=== PATIENT | female | born 1965 | race Caucasian/White ===

== ENCOUNTER 2017-02-21 11:54 | Emergency (ER) | payer BC ==
[2017-02-21 12:10] VITALS: BP 150/67
--- NOTE | 2017-02-21 13:00 | EDM.PDOC ---
ED HPI HEADACHE COMPLAINT - General Chief Complaint: Headache Stated Complaint: HEADACHE/BLOOD VESSEL IN LT EYE Time Seen by Provider: 02/21/17 12:43 Source: Reports: Patient, Old records, RN notes reviewed History Limitations: Reports: No limitations - History of Present Illness INITIAL COMMENTS - FREE TEXT/NARRATIVE: 51-year-old female presents to emergency department today complaining of headache she was initially evaluated in the urgent care clinic and referred to the ED for further evaluation. She states she was awoken from sleep with the worst headache of her life 2 days prior headache lasted approximately 5 minutes then resolved. Today she awoke with with a low-grade headache predominantly behind her left eye she denies any other symptoms such as photophobia phonophobia or nausea no history of migraines does have a history of small vessel ischemic disease in her father, blood work done yesterday including CBC, INR within normal limits factor 5 is pending - Related Data Allergies/ADRs: Allergies Allergy/AdvReac Type Severity Reaction Status Date / Time azithromycin Allergy Hives Verified 07/25/13 13:02 [From Zithromax Z-Ayaan] ramelteon [From Rozerem] Allergy Anxiety Verified 08/30/14 14:22 Home Meds: Home Meds Aspirin 81 mg PO 07/25/13 [History] Calcium Carb/Vit D3/Minerals [Calcium 600+D Plus Min] 1 each PO 07/25/13 [ History] Cetirizine HCl/Pseudoephedrine [Zyrtec-D Tablet] 1 each PO 07/25/13 [History] Magnesium Oxide [Mag-Oxide] 400 mg PO 07/25/13 [History] Melatonin 1 mg PO BEDTIME 07/25/13 [History] Progesterone,Micronized [Prometrium] 200 mg PO BEDTIME 07/25/13 [History] Vit C/Ascorbate Ca/Ascorb Sod [Vitamin C] 500 mg PO 07/25/13 [History] Vit D3 & K/Berberine HCl/Hops [Ostera] 1 each PO 07/25/13 [History] Estrogen,Thelma/Me-Testosterone [Estrogen-Methyltestos F.S.] 1 each PO 02/21/17 [ History] Past Medical History HEENT History: Reports: Other (see below) Other HEENT History: headache past 2 days,broken blood vessel in L eye Neurological History: Reports: Other (see below) Other Neuro History: headache past 2 days C/0 pressure Social & Family History - Tobacco Use Smoking Status *Q: Never Smoker - Caffeine Use Caffeine Use: Reports: None - Alcohol Use Number of Drinks Per Day: 1 - Recreational Drug Use Recreational Drug Use: No ED ROS GENERAL - Review of Systems Review Of Systems: See Below Constitutional: Denies: fever, chills HEENT: Reports: No symptoms Respiratory: Reports: No Symptoms Cardiovascular: Reports: No symptoms GI/Abdominal: Reports: No symptoms : Reports: no symptoms Musculoskeletal: Reports: no symptoms Skin: Reports: no symptoms Neurological: Reports: Headache Psychiatric: Reports: No symptoms - Physical Exam Exam: See Below Text/Narrative:: General: female, not in any distress, alert and oriented x3 HEENT: head is atraumatic normocephalic, eyes pupils equal round reactive to light, sclera has a sub-conjunctival hemorrhage medial aspect left eye right eye is clear, no conjunctivitis appreciated, funduscopic exam revealed sharp disc margins no papilledema noted did complain of pain in the funduscopic exam with the right eye only. Ears tympanic membranes clear and landrum landmarks and light reflex are present bilaterally canals are clear. Nose no septal deviation, nares are clear, no blood present. Mouth mucosa is moist and pink no erythema or exudate noted in soft palate, tongue is midline uvula is midline, dentition is intact. Neck: Supple no thyromegaly no tracheal deviation. Nodes: Cervical nodes subclavicular nodes nontender no palpable lymphadenopathy noted. Lungs: clear to auscultation bilaterally with symmetrical respirations, no adventitious noise appreciated. CV: Regular rate and rhythm S1 and S2 appreciated no murmurs rubs or gallops noted. Abdomen: Soft, nontender, no palpable masses or organomegaly appreciated, no distention no guarding bowel sounds are present, Neuro: Cranial nerves II through XII grossly intact Skin: Warm and dry, intact Extremities: No lower extremity edema appreciated, Course - Vital Signs Last Recorded V/S: Last Vital Signs Temp 97.7 F 02/21/17 12:07 Pulse 70 02/21/17 12:07 Resp 18 02/21/17 12:07 BP 150/67 H 02/21/17 12:07 Pulse Ox - Orders/Labs/Meds Orders: Active Orders 24 hr Category Date Time Status Head wo Cont [CT] Stat Exams 02/21/17 12:57 Taken Departure - Departure Time of Disposition: 14:29 Disposition: Home, Self-Care 01 Condition: good Clinical Impression: Head ache Qualifiers: Headache type: unspecified Headache chronicity pattern: acute headache Intractability: not intractable Qualified Code(s): R51 - Headache Forms: ED Department Discharge Additional Instructions: use Tylenol or Motrin as needed for pain control, Please followup with your primary care provider in 3-5 days if not better, please call return to the emergency department with worsening of symptoms. - My Orders Last 24 Hours: My Active Orders 02/21/17 12:57 Head wo Cont [CT] Stat - Assessment/Plan Last 24 Hours: My Active Orders 02/21/17 12:57 Head wo Cont [CT] Stat Plan: Assessment Acuity = acute Site and laterality = headache Etiology = unclear etiology Manifestations = none Location of injury = home Lab values = CT scan shows no acute process Plan I did review CT scan results,declined any treatment for pain control issues ibuprofen at home follow up her primary care 3-5 days if no improvement Patient was in agreement with the plan all questions were answered, they were instructed to return to the emergency department or call for worsening symptoms. This note was dictated using [employer] voice recognition software please call with any questions.
== END 2017-02-21 14:38 | disposition home or self-care (01) ==
LOC: JP.ED 11:54
DX: R51 Headache (principal); Z79.82 Long term (current) use of aspirin; Z79.899 Other long term (current) drug therapy; Z88.1 Allergy status to other antibiotic agents; Z88.8 Allergy status to other drugs, medicaments and biological substances
CPT/HCPCS: 70450; 99284-25

== ENCOUNTER 2019-04-23 23:27 | Emergency (ER) | payer BC ==
[2019-04-23 23:54] VITALS: BP 126/54
[2019-04-23] MEDS ORDERED: Tetracaine HCl/PF 0.5% 4 ML Bottle EYERT ONE (23:57)
--- NOTE | 2019-04-24 00:17 | EDM.PDOC ---
ED HPI GENERAL MEDICAL PROBLEM - General Chief Complaint: Eye Problems Stated Complaint: MAYBE SOMETHING IN EYE Time Seen by Provider: 04/23/19 23:50 Source of Information: Reports: Patient, Old Records, RN History Limitations: Reports: No Limitations - History of Present Illness INITIAL COMMENTS - FREE TEXT/NARRATIVE: 53 yo female presents with a red and painful R eye since yesterday morning getting worse. She has normal vision and only mild light sensitivity. No discharge. Is not aware of any foreign bodies. No hx of glaucoma and was tested in the last year for this. More painful to the upper portion of her eye and ? under the upper lid. No hx of any auto immune disorders. 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 below) Other Treatments BANKING TEACHER: rinsed eye with water Right Eye Pain Score (Numeric/FACES): 8 - Related Data Allergies Allergy/AdvReac Type Severity Reaction Status Date / Time amoxicillin [From Augmentin] Allergy Hives Verified 04/23/19 23:41 azithromycin Allergy Hives Verified 04/23/19 23:41 [From Zithromax Z-Ayaan] clavulanic acid Allergy Hives Verified 04/23/19 23:41 [From Augmentin] ramelteon [From Rozerem] Allergy Anxiety Verified 04/23/19 23:41 Home Meds: Home Meds Aspirin 81 mg PO 07/25/13 [History] Calcium Carb/Vit D3/Minerals [Calcium 600+D Plus Min] 1 each PO 07/25/13 [ History] Cetirizine HCl/Pseudoephedrine [Zyrtec-D Tablet] 1 each PO 07/25/13 [History] Magnesium Oxide [Mag-Oxide] 400 mg PO 07/25/13 [History] Melatonin 1 mg PO BEDTIME 07/25/13 [History] Progesterone,Micronized [Prometrium] 200 mg PO BEDTIME 07/25/13 [History] Vit C/Ascorbate Ca/Ascorb Sod [Vitamin C] 500 mg PO 07/25/13 [History] Vit D3 & K/Berberine HCl/Hops [Ostera] 1 each PO 07/25/13 [History] Estrogen,Thelma/Me-Testosterone [Estrogen-Methyltestos F.S.] 1 each PO 02/21/17 [ History] Past Medical History HEENT History: Reports: Other (See Below) Other HEENT History: headache past 2 days,broken blood vessel in L eye Gastrointestinal History: Reports: Cholelithiasis Neurological History: Reports: Other (See Below) Other Neuro History: headache past 2 days C/0 pressure - Past Surgical History GI Surgical History: Reports: Cholecystectomy Female Surgical History: Reports: Tubal Ligation Social & Family History - Tobacco Use Smoking Status *Q: Never Smoker Second Hand Smoke Exposure: No - Caffeine Use Caffeine Use: Reports: Coffee, Soda - Recreational Drug Use Recreational Drug Use: No ED ROS GENERAL - Review of Systems Review Of Systems: See Below Constitutional: Reports: No Symptoms HEENT: Reports: Eye Pain (right only). Denies: Eye Discharge Skin: Reports: No Symptoms Neurological: Reports: No Symptoms ED EXAM GENERAL W FULL EYE - Physical Exam Exam: See Below Exam Limited By: No Limitations General Appearance: Alert, WD/WN, No Apparent Distress Eye Exam: Right Eye: Conjunctival Injection, EOMI, PERRL Visual Acuity (R) 20/: 20 Visual Acuity (L) 20/: 20 With Correction: No Eyelids: Bilateral: Normal Appearance Conjunctiva & Sclera: Right: Injected Cornea Exam: Right: Normal Appearance Pupillary Size: Left: 3 mm Ears: Hearing Grossly Normal Nose: Normal Inspection, No Blood Skin Exam: Warm, Dry, Intact, Normal Color, No Rash Course - Vital Signs Text/Narrative:: phone consult with Dr. Tanner, [facility] in [place] @ [id number] Last Recorded V/S: Last Vital Signs Temp 35.9 C 04/23/19 23:49 Pulse 70 04/23/19 23:49 Resp 14 04/23/19 23:49 BP 126/54 L 04/23/19 23:49 Pulse Ox 97 04/23/19 23:49 - Orders/Labs/Meds Meds: Medications Discontinued Medications Generic Name Dose Route Start Last Admin Trade Name Freq PRN Reason Stop Dose Admin Dexamethasone 1 ml 04/24/19 00:44 Maxidex 0.1% Ophth Susp EYEBOTH 04/24/19 00:45 NOW STA Tetracaine HCl 0.05 ml 04/23/19 23:57 04/24/19 00:02 Tetracaine 0.5% Steri-Unit Vee EYERT 04/23/19 23:58 0.05 drop ASDIRECTED ONE Administration Departure - Departure Time of Disposition: 01:15 Disposition: Home, Self-Care 01 Condition: Fair Clinical Impression: Episcleritis of right eye - Discharge Information *PRESCRIPTION DRUG MONITORING PROGRAM REVIEWED*: No *COPY OF PRESCRIPTION DRUG MONITORING REPORT IN PATIENT GIUSEPPE: No Referrals: Sisi Hanson MD [Primary Care Provider] - Forms: ED Department Discharge Additional Instructions: Take ibuprofen 800 mg every 8 hrs with food. Apply wetting eye drops several times a day to this eye. Go to the [place] [facility] or your own local eye doctor on Thursday for recheck. The [place] [facility] is at [address] [place] [address] in [place]. This is across the street from the hospital. If you go there say you were in the [facility] and Dr. Sesay agreed to see you. If you get a lot worse before Thursday then go to the ER in [place] and tell them that you were hoping to see Dr. Tanner if an eye consult is still needed.
[2019-04-24] MEDS ORDERED: Dexamethasone 0.1% Ophth Susp 5 ML Bottle EYEBOTH STA (00:44)
== END 2019-04-24 01:27 | disposition home or self-care (01) ==
LOC: JP.ED 23:27
DX: H15.101 Unspecified episcleritis, right eye (principal); Z79.899 Other long term (current) drug therapy; Z79.82 Long term (current) use of aspirin
CPT/HCPCS: 99283; A9270-GY